=== PATIENT | male | born 1930 | race Hispanic/Latino ===

== ENCOUNTER → 2018-02-26 | Outpatient (CLI) | payer MEDICARE, OTHER ==
[~2018-02-26] MED LIST: AMLODIPINE BESYL5 MG PO; FLOMAX0.4 MG PO; FUROSEMIDE40 MG PO; HYDRALAZINE HCL25 MG PO; LEVAQUIN500 MG PO; LOSARTAN POTAS100 MG PO; LOSARTAN-HCTZ1 EAC1 PO; METOPROLOL SUCC50 MG PO; OMEPRAZOLE40 MG PO
--- NOTE | 2018-02-26 14:51 | Diagnostic Imaging Report ---
PROCEDURE:X-RAY ABDOMEN - KUB COMPARISON:CT abdomen and pelvis with and without contrast 12/01/2016. INDICATIONS:CYST DRAINED 1 YEAR AGO FINDINGS: The bowel gas pattern shows no dilated, air-filled loops of bowel. Cholecystectomy clips. Multiple calcified injection granulomata in the right and left gluteal regions. No suspicious calcifications project over the renal shadows, ureteral courses, or urinary bladder. Atherosclerotic vascular calcifications. Intact regional skeletal structures. CONCLUSION: Nonobstructive bowel gas pattern. Dictated by: Himanshu Sigala M.D. on 02/26/2018 at 14:52 Electronically approved by: Himanshu Sigala M.D. on 02/26/2018 at 14:52
== END ==
LOC: RAD 12:13
PROVIDERS: ATTEND Family Medicine
DX: R10.9 Unspecified abdominal pain (principal)
CPT/HCPCS: 74018